=== PATIENT | female | born 1985 | race Two or more races ===

== ENCOUNTER 2024-10-28 15:53 | Inpatient (IN) | payer OTHER ==
[~2024-10-28] VITALS: Ht 157.5 cm; Wt 72.6 kg
[2024-10-28] MEDS ORDERED: FERROUS SULFATE 325 MG TABLET.EC PO SCH (18:33)
[2024-10-28] MEDS ORDERED: FOLIC ACID 1 MG TABLET PO SCH (18:34)
[2024-10-28] MEDS ORDERED: ASCORBIC ACID 500 MG TABLET PO SCH ×2 (18:35→18:36)
[2024-10-28] MEDS ORDERED: RINGERS SOLUTION,LACTATED 1,000 ML IV SCH (18:45)
[2024-10-28 19:04] VITALS: BP 124/81
[2024-10-28 21:03] VITALS: BP 124/81
[2024-10-29 00:07] VITALS: BP 122/74
[2024-10-29 08:15] VITALS: BP 116/68
[2024-10-29] MEDS ORDERED: MEGESTROL ACETATE 40 MG TABLET PO SCH (09:00)
[2024-10-29 17:06] VITALS: BP 129/83
[2024-10-29 23:47] VITALS: BP 123/74
[2024-10-30 00:07] LABS: HEMATOCRIT 33.4 % (36.0-45.00); HEMOGLOBIN 10.5 g/dL (12.0-15.00); MEAN CORPUSCULAR HEMOGLOBIN 21.4 pg (27.00-32.0); MEAN CORPUSCULAR HGB CONC 31.4 g/dl (32.0-36.0); PLATELET COUNT 463 K/uL (150-450)
[2024-10-30 00:13] LABS: MEAN CELL VOLUME 68.2 fL (80.00-100.00)
[2024-10-30 14:52] LABS: INR 0.96; PARTIAL THROMBOPLASTIN TIME 26.7 SECONDS (22.0-34.0); PROTHROMBIN TIME 10.5 SECONDS (9.0-11.5)
[2024-10-30 15:59] VITALS: BP 135/81
[2024-10-30] MEDS ORDERED: DOCUSATE SODIUM 100MG CAP PO SCH (17:00)
[2024-10-30 21:50] LABS: HEMATOCRIT 38.3 % (36.0-45.00); HEMOGLOBIN 12.2 g/dL (12.0-15.00); MEAN CELL VOLUME 70.7 fL (80.00-100.00); MEAN CORPUSCULAR HEMOGLOBIN 22.5 pg (27.00-32.0); MEAN CORPUSCULAR HGB CONC 31.8 g/dl (32.0-36.0); PLATELET COUNT 438 K/uL (150-450); RED BLOOD COUNT 5.43 M/uL (4.00-6.00); RED CELL DISTRIBUTION WIDTH 24.4 % (11.5-14.5)
[2024-10-30 22:03] LABS: INR < 0.93; PARTIAL THROMBOPLASTIN TIME 25.7 SECONDS (22.0-34.0); PROTHROMBIN TIME 10.1 SECONDS (9.0-11.5)
[2024-10-31 00:23] VITALS: BP 126/77
[2024-10-31 08:00] VITALS: BP 133/75
[2024-10-31] MEDS ORDERED: SIMETHICONE 125 MG CAPSULE PO SCH (09:00)
[2024-10-31] MEDS ORDERED: CEFAZOLIN SODIUM 1,000 MG VIAL IV NR ×2 (14:00→18:30)
[2024-10-31 16:00] VITALS: BP 131/75
[2024-10-31] MEDS ORDERED: RINGERS SOLUTION,LACTATED 1,000 ML IV SCH (21:45)
[2024-10-31] MEDS ORDERED: MORPHINE SULFATE 4 MG/ML VIAL IV ONE ×2 (22:00→22:15)
[2024-10-31] MEDS ORDERED: MEPERIDINE HCL 50 MG/ML AMPUL IV ONE ×2 (22:45)
[2024-11-01] MEDS ORDERED: ENALAPRILAT DIHYDRATE 1.25 MG/ML VIAL IV ONE ×2 (00:45→01:00)
[2024-11-01] MEDS ORDERED: MEPERIDINE HCL/PF 50 MG/ML VIAL IV SCH (01:00)
[2024-11-01] MEDS ORDERED: PROMETHAZINE HCL 25 MG/ML AMPUL IV SCH (01:00)
[2024-11-01 06:22] LABS: HEMATOCRIT 34.6 % (36.0-45.00); HEMOGLOBIN 11.1 g/dL (12.0-15.00); MEAN CELL VOLUME 70.6 fL (80.00-100.00); MEAN CORPUSCULAR HEMOGLOBIN 22.7 pg (27.00-32.0); MEAN CORPUSCULAR HGB CONC 32.2 g/dl (32.0-36.0); PLATELET COUNT 357 K/uL (150-450)
[2024-11-01 06:31] LABS: RED CELL DISTRIBUTION WIDTH 25.5 % (11.5-14.5)
[2024-11-01 07:00] VITALS: BP 140/88
[2024-11-01] MEDS ORDERED: MORPHINE SULFATE 2 MG/ML CARTRIDGE IV PRN (08:00)
[2024-11-01] MEDS ORDERED: MORPHINE SULFATE 4 MG/ML VIAL IV ONE (08:00)
[2024-11-01 08:21] VITALS: BP 145/80
[2024-11-01] MEDS ORDERED: OxyCODONE HCL/APAP UD (PERCOCET) PO SCH (09:00)
[2024-11-01] MEDS ORDERED: SIMETHICONE 125 MG CAPSULE PO SCH (09:00)
[2024-11-01] MEDS ORDERED: DOCUSATE SODIUM 100MG CAP PO SCH (09:00)
[2024-11-01] MEDS ORDERED: GABAPENTIN 300 MG CAPSULE PO SCH (09:00)
[2024-11-01 15:50] VITALS: BP 135/79
[2024-11-01 19:00] VITALS: BP 115/79
[2024-11-02] VITALS: BP 132/74
[2024-11-02 08:01] VITALS: BP 137/69
[2024-11-02] MEDS ORDERED: IBU800 MG PO (08:14)
[2024-11-02] MEDS ORDERED: SIMETHICONE125 M1 PO (08:15)
[2024-11-02] MEDS ORDERED: SURFAK240 M1 PO (08:15)
== END 2024-11-02 09:01 | disposition home or self-care (01) | DRG 743 ==
LOC: OB/GYN 15:53
PROVIDERS: Obstetrics & Gynecology; ADMIT Obstetrics & Gynecology; ATTEND Obstetrics & Gynecology
PROC: 30233N1 Transfusion of Nonautologous Red Blood Cells into Peripheral Vein, Percutaneous Approach (ICD-10-PCS; 2024-10-29)
PROC: 0UT90ZZ Resection of Uterus, Open Approach (ICD-10-PCS; 2024-10-31)
PROC: 0UT70ZZ Resection of Bilateral Fallopian Tubes, Open Approach (ICD-10-PCS; principal; 2024-10-31 19:45)
DX: D25.2 Subserosal leiomyoma of uterus (principal); N72 Inflammatory disease of cervix uteri; D64.9 Anemia, unspecified; N93.8 Other specified abnormal uterine and vaginal bleeding

== ENCOUNTER → 2024-10-28 | Outpatient (CLI) | payer OTHER ==
[~2024-10-28] VITALS: Ht 157.5 cm; Wt 74.8 kg
[~2024-10-28] MED LIST: IBU800 MG PO; SIMETHICONE125 M1 PO; SURFAK240 M1 PO
[2024-10-28 09:07] LABS: MEAN CORPUSCULAR HGB CONC 29.5 g/dl (32.0-36.0); PLATELET COUNT 507 K/uL (150-450); RED BLOOD COUNT 3.62 M/uL (4.00-6.00); RED CELL DISTRIBUTION WIDTH 18.6 % (11.5-14.5)
[2024-10-28 09:17] LABS: URINE APPEARANCE Clear; URINE BILIRRUBIN Negative (NEGATIVE); URINE BLOOD Trace; URINE COLOR Yellow; URINE GLUCOSE Negative (NEGATIVE); URINE KETONE Negative (NEGATIVE); URINE LEUKOCYTE Trace; URINE NITRATE Negative; URINE PROTEIN Negative (NEGATIVE); URINE UROBILINOGEN 0.2 E.U./dl
[2024-10-28 09:19] VITALS: BP 133/79
[2024-10-28 09:23] LABS: URINE EPITHELIAL CELLS 17.8 uL (0.0-38.8); URINE RBC 21.3 uL (0.0-20.8); URINE WBC 17.5 uL (0.0-23.2)
[2024-10-28 09:29] LABS: INR 0.94; PROTHROMBIN TIME 10.3 SECONDS (9.0-11.5)
[2024-10-28 09:30] LABS: MEAN CELL VOLUME 64.3 fL (80.00-100.00)
[2024-10-28 09:31] LABS: HEMATOCRIT 23.3 % (36.0-45.00); HEMOGLOBIN 6.9 g/dL (12.0-15.00)
[2024-10-28 10:11] LABS: ALBUMIN 3.8 gm/dL (3.4-5.0); BILIRUBIN TOTAL 0.38 mg/dL (0.3-1.2); CALCIUM 9.3 mg/dL (8.5-10.1); CREATININE SERUM 0.76 mg/dL (0.55-1.02); GFR 85.63; GLOBULINA 3.5 G/DL (2.4-3.5); POTASSIUM 4.26 mEq/L (3.5-5.1); TOTAL PROTEIN 7.3 gm/dL (6.4-8.2)
== END | disposition home or self-care (01) ==
LOC: RAD 08:00 → EDSTATUS 11-08 07:15 → SURH 11-08 07:15
PROVIDERS: ATTEND Student in an Organized Health Care Education/Training Program
DX: N93.8 Other specified abnormal uterine and vaginal bleeding (principal)